=== PATIENT | male | born 1945 | race Caucasian/White ===

== ENCOUNTER 2016-08-29 22:14 | Inpatient (IN) ==
[2016-08-30] MEDS ORDERED: *HR* Heparin 5,000 UNIT/ML VIAL IVP PRN ×2 (01:36)
--- NOTE | 2016-08-30 01:41 | Internal Med History&Physical ---
Date of Encounter: 08/30/16 Time of Encounter: 01:38 Assessment and Plan (1) NSTEMI (non-ST elevated myocardial infarction) Current visit: Yes Status: Acute I will continue the patient on aspirin, beta en, heparin drip, nitro drip. Check echocardiogram. Patient will need a coronary angiography. He is allergic to contrast. Will pre-Medicaid the patient for contrast allergy. He has been having some abdominal discomfort and nausea. We will get a CT scan of the abdomen and pelvis. He is a lifelong smoker will give nicotine patch. I will discuss code status with him. Would like to be to not resuscitate except in the rear instance where he has an arrhythmia that physician Deems reversible. Internal Medicine - H&P: HPI Chief complaint: chest pain History of present illness: Mr. Adler is a 70 year old male with a history of hypertension, lifelong smoking who presented to [facility] emergency room on Tuesday 2 days ago because of chest pain. Patient has been experiencing retrosternal left pectoral chest pain radiating to his back and left shoulder. Pain lasted almost all day on Tuesday. Is also been feeling intermittent nausea but no vomiting. No hematomas is really no rain magic easy. Workup. [facility] shoulder troponin peak of about 7. Patient is thus transferred to our facility. pulls off pain during my interview. Patient had a prior stress test long time ago however no reason coronary evaluation. Patient also described abdominal discomfort but no focal pain or tenderness. Internal Medicine - H&P: Meds Allergies adhesive tape Allergy (Verified 08/30/16 00:49) Rash Iodinated Contrast- Oral and IV Dye Allergy (Verified 08/30/16 00:49) See Comments iodine Allergy (Verified 08/30/16 00:49) See Comments latex Allergy (Verified 08/30/16 00:49) See Comments Neomycin Allergy (Verified 08/30/16 00:49) Rash All Systems PM: A 10-system review of systems was performed and is negative for pertinent findings except as documented above in the HPI. Review of systems: 10 point ROS is negative except for HPI - Constitutional Vitals: Temp Resp BP Pulse Ox 98.2 F 16 128/83 95 08/30/16 00:34 08/30/16 00:34 08/30/16 00:34 08/30/16 00:34 Exam: Gen.: patient is alert oriented times 3 cardiac: normal S1 S2 no additional sounds or murmurs chest: no active wheezing or bronchial breathing abdomen soft nontender nondistended normal bowel sounds lower extremity no swelling. Neuro: no new focal deficits
[2016-08-30] MEDS ORDERED: Heparin 25,000 UNIT/500 ML D5W 25,000 UNIT/500 ML MLS IVC SCH (01:45)
[2016-08-30 02:00] LABS: Basophils % 0.4 %; Eosinophils # 0.2 K/mcL (0.0-0.6); Eosinophils % 2.4 %; Hematocrit 43.8 % (37.5-50.1); Hemoglobin 14.5 g/dL (12.9-16.9); Immature Granulocytes % 0.4 % (0-4); Lymphocytes # 3.1 K/mcL (0.6-4.6); Lymphocytes % 40.8 %; Mean Corpuscular HGB Conc 33.1 g/dL (31.6-35.5); Mean Corpuscular Hemoglobin 30.5 pg (28.0-33.3); Mean Corpuscular Volume 92.2 fL (83.0-100.0); Mean Platelet Volume 10.3 fL (9.4-12.4); Monocytes # 0.8 K/mcL (0.0-1.3); Monocytes % 10.6 %; Neutrophils # 3.5 K/mcL (1.6-8.9); Platelet Count 171 K/mcL (140-400); Red Blood Count 4.75 M/mcL (4.19-5.50); Red Cell Distribution Width 12.6 % (11.5-14.5); Segmented Neutrophils % 45.4 %
[2016-08-30 02:06] LABS: INR 1.1; Prothrombin Time 11.7 Seconds (9.4-12.1)
[2016-08-30 02:14] LABS: Alanine Aminotransferase 34 Units/L (0-55); Albumin 3.3 g/dL (3.5-5.0); Alkaline Phosphatase 53 Units/L (38-126); Aspartate Amino Transferase 28 Units/L (5-34); BUN/Creatinine Ratio 13 (6-26); Bilirubin,Total 0.6 mg/dL (0.2-1.2); Blood Urea Nitrogen 14 mg/dL (8-26); Calcium 8.9 mg/dL (8.6-10.8); Carbon Dioxide 29 mEq/L (19-29); Chloride 103 mEq/L (98-109); Creatine Kinase 192 Units/L (30-200); Globulin 3.2 g/dL (2.4-3.5); Glucose 130 mg/dL (70-99); Magnesium 2.1 mg/dL (1.6-2.6); Osmolality,Calculated 290 (280-300); Potassium 4.2 mEq/L (3.5-4.5); Sodium 139 mEq/L (136-145); Total Protein 6.5 g/dL (6.0-8.3); eGFR For African Americans > 60 (> 60); eGFR For Non-African Americans > 60 (> 60)
[2016-08-30] MEDS ORDERED: Nitroglycerin 25 MG/250 ML INFUS..BTL IVC SCH (02:30)
[2016-08-30] MEDS: Famotidine 20 MG/2 ML VIAL IVP SCH ×2 (06:15→16:41)
[2016-08-30] MEDS: Nicotine 21 MG PATCH.TD24 TD SCH (08:27)
--- NOTE | 2016-08-30 08:41 | Pre-Sedation Evaluation ---
Pre-sedation evaluation - Pre-sedation checklist Date of procedure: 08/30/16 Procedure: [facility] Recent Vitals: Last Vital Signs Temp 98 F 08/30/16 07:07 Pulse 69 08/30/16 07:07 Resp 18 08/30/16 07:07 BP 113/80 08/30/16 07:07 Pulse Ox 97 08/30/16 07:07 H&P (including ROS) documented in medical record: Yes Previous reaction to sedatives/anesthetics: No Dietary Status: NPO after Midnight Airway Assessment: Patient can open mouth completely, TMJ function normal ASA Classification *see protocol: CLASS II-Mild systemic disease Plan of Care: Pt appropriate candidate for procedure/moderate/conscious sedation , Risks/benefits of procedure/sedation discussed w/ patient/family
--- NOTE | 2016-08-30 08:56 | Cardiology Consult Note ---
Date of Encounter: 08/30/16 Time of Encounter: 08:51 Assessment and Plan (1) NSTEMI (non-ST elevated myocardial infarction) Current Visit: Yes Status: Acute Peak troponin 7.26 at [facility], now downtrending 4.34. On heparin and nitro gtt. Continue ASA, Statin, BB. Recommend [facility]. R/B/A discussed. Pt agrees to proceed. [facility] today. Was on daily Plavix started at [facility]. Discussed with Dr. Crouch, will load with 300mg once. Reports IVP dye allergy. Hives in the past. Will pre-medicate in earth science laboratory technician. Echo pending. (2) Tobacco abuse Current Visit: Yes Status: Acute Smoking cessation counseling given. Discussion w patient/family: The assessment and plan as outlined above was discussed with the patient and/or family members who expressed understanding and agreement. All questions were answered. Thank you for involving us in the care of your patient. Please call with any questions. I will discuss all the above with Dr. Crouch and make changes as necessary. History of Present Illness Consult date: 08/30/16 Requesting physician: Geraldo Anderosn Consult reason: NSTEMI Chief complaint: chest pain History of present illness: Mr. Adler is a 70 year old male with PMH of hyperlipidemia and tobacco abuse that presented in transfer from [facility] for NSTEMI. Pt reports on Tuesday he was outside chasing one of his horses. When he returned inside he developed midsternal chest pain radiating to left shoulder and into his back. He presented to [facility] and remained there until Tuesday night. Peak troponin was 7.26, now downtrended to 4.34. Pt reports the pain has been waxing and waning, improved with nitro, but has never completely resolved. He noticed new onset of fatigue when mowing grass last Tuesday. He denies dyspnea. He has been having intermittent lower abdominal pain and nausea and a CT is pending. Past Med Surg Social Fam HX - Past Medical History Medical history: arthritis, GERD, kidney stones, myocardial infarction Psychiatric history: no psych history - Social History Smoking Status: Current every day smoker Packs per day: 1 Smokeless Tobacco Status: No Alcohol use: none Drug use: none - Family History Brother Living Status: Age at : 50 Cause of : CVA Hx Family Cardiac Disorders: Yes (HTN) Father Living Status: Age at : 92 Cause of : "black lung" Hx Family Respiratory Disorders: Yes (Black lung) Medications and Allergies Lipitor 10 mg PO HS 08/30/16 [History] Pataday 1 drop BOTH EYES BID 08/30/16 [History] Allergies adhesive tape Allergy (Verified 08/30/16 00:49) Rash Iodinated Contrast- Oral and IV Dye Allergy (Verified 08/30/16 00:49) See Comments iodine Allergy (Verified 08/30/16 00:49) See Comments latex Allergy (Verified 08/30/16 00:49) See Comments Neomycin Allergy (Verified 08/30/16 00:49) Rash All Systems Review: A 10-system review of systems was performed and is negative for pertinent findings except as documented above in the HPI. - Cardiovascular Cardiovascular: as per HPI, chest pain at rest, chest pain with exertion, radiating jaw, neck or arm pain - Gastrointestinal Gastrointestinal: abdominal pain, nausea Physical Examination Vital Signs, Last 4 Hours Temp Pulse Resp BP Pulse Ox 08/30/16 07:07 98 F 69 18 113/80 97 Vital Signs Temp Pulse Resp BP Pulse Ox 08/30/16 07:07 98 F 69 18 113/80 97 08/30/16 04:27 69 19 103/52 95 08/30/16 00:34 98.2 F 16 128/83 95 Intake and Output 08/29/16 08/30/16 08/30/16 23:59 07:59 15:59 Intake Total 0 / 0 Balance 0 / 0 Intake: Oral 0 / 0 Other: # Voids 1 Weight 122 kg Patient Weight 08/30/16 23:59 Weight 122 kg General: Conversant, No Apparent Distress HEENT: Atraumatic, Normocephaly, Mucus Membranes Moist Neck: No JVD, Normal carotid pulses Cardiac: Reg Rate and Rhythm, Normal S1 and S2, No Murmur Lungs: Normal Breath Sounds, No Wheeze, Rales, Rhonchi Neuro: Alert and responsive, No focal deficits noted Abdomen: Soft, Non-Tender Skin: No rashes noted on visualized skin Musculoskeletal: No Chest Wall Tenderness Extremities: No Clubbing, No Cyanosis, No Edema, Normal Pulses Results 08/30/16 01:46 08/30/16 01:46 Lab Results 08/30/16 08/30/16 08/30/16 01:46 01:46 01:46 WBC 7.6 Hgb 14.5 Hct 43.8 Plt Count 171 INR 1.1 APTT 44.0 H Sodium 139 Potassium 4.2 Chloride 103 Carbon Dioxide 29 BUN 14 Creatinine 1.04 Glucose 130 H Calcium 8.9 Magnesium 2.1 Total Bilirubin 0.6 AST 28 ALT 34 Alkaline Phosphatase 53 Troponin I 08/30/16 01:46 WBC Hgb Hct Plt Count INR APTT Sodium Potassium Chloride Carbon Dioxide BUN Creatinine Glucose Calcium Magnesium Total Bilirubin AST ALT Alkaline Phosphatase Troponin I 4.34 H* Impressions Abdomen/Pelvis CT 08/30/16 07:40 IMPRESSION: 1. No acute intra-abdominal or intrapelvic process. 2. Bilateral nonobstructing nephrolithiasis, without evidence of a ureteral calculus or hydronephrosis. 3. Right renal cysts. 4. Diffuse hepatic steatosis. 5. Small bilateral fat containing inguinal hernias, with a small fat containing umbilical hernia. However, none of the hernias demonstrates incarceration or bowel involvement. 6. A 2.9 cm fusiform infrarenal AAA. Further follow-up of this abnormality is as suggested below. 7. Small pericardial effusion. RECOMMENDATIONS: Managing Abdominal Aortic Aneurysms 2.6-2.9 cm: 5 year follow up. Reference: Merritt et al. The care of patients with an abdominal aortic aneurysm: The Society of Vascular Surgery practice guidelines. Journal of Vascular Surgery. Vol 50, Number 85. Caesar et al. Managing Incidental Findings on Abdominal and Pelvic CT and MRI, Part 2: White Paper of the ACR Incidental Findings Committee II on Vascular Findings. J Am Therese Radiol 2013;10:789-794 D/ / 08/30/2016 08:28:38 Yared Dumont MD / miki Interpreting Provider: Yared Dumont MD Active Medications Aspirin (Aspirin) 325 mg PO DAILY [facility] Stop: 03/01/17 09:01 Famotidine (Pepcid) 20 mg IVP Q12HR TARA PRN Reason: Protocol Stop: 03/01/17 06:01 Last Admin: 08/30/16 06:15 Dose: 20 mg Heparin Sodium (Porcine) (Heparin) 4,000 unit IVP Q6HR PRN PRN Reason: SEE COMMENTS Stop: 03/01/17 01:37 Heparin Sodium (Porcine) (Heparin) 2,000 unit IVP Q6H PRN PRN Reason: SEE COMMENTS Stop: 03/01/17 01:37 Heparin Sodium/Dextrose (Heparin 25,000 Unit/500 Ml D5w) 25,000 unit in 500 mls @ 29.28 mls/hr IVC .Q17H5M TARA; 12 UNIT/KG/HR PRN Reason: Protocol Stop: 03/01/17 01:46 Last Admin: 08/30/16 02:12 Dose: 12 unit/kg/hr, 29.28 mls/hr Nitroglycerin (Nitroglycerin) 25 mg in 250 mls @ 3 mls/hr IVC .Q24H TARA; 5 MCG/ MIN PRN Reason: Protocol Stop: 03/01/17 02:31 Last Admin: 08/30/16 01:00 Dose: 5 mcg/min, 3 mls/hr Metoprolol Tartrate (Lopressor) 12.5 mg PO BID TARA Stop: 03/01/17 09:01 Nicotine (Nicoderm) 21 mg TD DAILY TARA PRN Reason: Protocol Stop: 03/01/17 09:01 Last Admin: 08/30/16 08:27 Dose: Not Given Simvastatin (Zocor) 20 mg PO HS TARA Stop: 03/01/17 21:01 - Imaging and Cardiology Echo: pending - EKG Interpretation EKG results cardiology: personally reviewed (SR with 1st degree block), other ( 12 hr tele AVG HR 69, SR, no significant pauses or arrhythmias.) Consult Discharge Plan - Plan Referrals: Last Padilla DO [Primary Care Provider] -
[2016-08-30] MEDS ORDERED: Aspirin 325 MG TABLET PO SCH (09:00)
[2016-08-30] MEDS ORDERED: 0.9 % Sodium Chloride 1,000 ML ONE (10:22)
[2016-08-30] MEDS ORDERED: Verapamil 5 MG/2 ML VIAL ONE (10:22)
[2016-08-30] MEDS ORDERED: Nitroglycerin 1,000 MCG/10 ML VIAL IV ONE (10:23)
[2016-08-30] MEDS ORDERED: *HR* Heparin 10,000 UNIT/10 ML VIAL ONE (10:23)
[2016-08-30] MEDS ORDERED: Heparin 1,000 UNITS/500 mL NS 500 ML ONE (10:23)
[2016-08-30] MEDS ORDERED: *HR* Midazolam HCl 2 MG/2 ML VIAL ONE (10:24)
[2016-08-30] MEDS ORDERED: *HR* FentaNYL (PF) 100 MCG/2 ML VIAL ONE (10:24)
[2016-08-30] MEDS ORDERED: 0.9 % Sodium Chloride 500 ML ONE (10:40)
[2016-08-30] MEDS ORDERED: methylPREDNISolone 125 MG/2 ML VIAL ONE (10:43)
--- NOTE | 2016-08-30 11:44 | Invasive Diagnostic Lab Proc ---
Name: Sidney Adler Date of Study: 08/30/2016 Date: 1945 Ht: 72.0in Medical Record#: [id number] Age: 70 Wt: 268.52lb Gender: Male BSA: 2.41 Order #: [id number] BMI: 36.41 Physicians Procedure Physician: Robbi Crouch MD, [facility] Referring MD: Referring MD: Staff Name Position Time In Lynn Garcia RT (R) Monitor 10:45 AM Pato Khan RT (R) Scrub 10:45 AM Bertha Saavedra RN Tank Wagon Operator 10:45 AM Indications Indication Non-Stemi Procedures Performed Procedure L HRT ARTERY/VENTRICLE ANGIO Pre-Procedure Checklist Informed consent is complete signed and on chart. H\\T\\P is on chart. ID band is on and ID verified with patient. Patient NPO for procedure The procedure was described for the patient and questions were answered. Blood Pressure: 161/83 ECG is on chart. Rhythm: NSR Plan of Care Patient will tolerate the procedure without complications. Adequate level of comfort will be maintained. Hemodynamics will remain stable Patient will recover from procedure without complications. Respiratory function will be maintained. Cardiac rhythm will remain stable. Patient temperature will be maintained. Patient and/or family have verbalized understanding of the procedure. Patient Education Chief Complaint/Reason for Test: Cardiac Cath Developmental Category: Adult (18-64 years) Developmentally Appropriate for Age: Yes Learning Barriers: None Education Needs: Procedure Education Method: Verbal Information Taught: Cardiac Cath Educational Evaluation: Able to repeat information Intravenous Access Time IV Size Location DC'd Fluid/Drip Rate Units RN 10:46 AM 20g 1 /" Patent On Arrival Lt Antecubital 0.9NaCl 25 ml/hr Allergies Iodinated Contrast- Oral and IV Dye iodine Neomycin adhesive tape latex Vital Signs Time BP (mmHg) HR (bpm) O2 Sat. RR (bpm) LOC 161 / 83 61 98 % 19 5 = Fully awake and oriented or at pre-proc level 10:47 AM / % 4 = Oriented but drowsy 10:47 AM / % 4 = Oriented but drowsy 11:02 AM / % 4 = Oriented but drowsy 10:51 AM 185 / 94 60 98 % 13 10:54 AM 161 / 83 64 99 % 17 10:57 AM 156 / 90 67 93 % 18 11:00 AM 157 / 84 64 93 % 16 11:03 AM 154 / 92 71 96 % 15 11:06 AM 145 / 79 65 95 % 17 11:09 AM 149 / 72 67 97 % 16 11:12 AM 149 / 71 64 97 % 18 11:15 AM 147 / 78 63 98 % 17 11:18 AM 142 / 79 63 98 % 13 11:22 AM 157 / 84 64 98 % 15 11:24 AM 157 / 85 60 98 % 11 11:27 AM 132 / 86 67 98 % 14 11:17 AM / % 4 = Oriented but drowsy Procedural Medications Time Medication Dose Units Method Given By 10:47 AM Oxygen 2 L/min nasal cannula Bertha Saavedra RN 10:49 AM Benadryl 50 mg Intravenous Bertha Saavedra RN 10:49 AM Solu-medrol 125 mg Intravenous Bertha Saavedra RN 10:49 AM Versed 2 mg Intravenous Bertha Saavedra RN 10:49 AM Fentanyl 50 mcg Intravenous Bertha Saavedra RN 11:01 AM Lidocaine 2% 0.5 ml Subcutaneous Robbi Crouch MD, FACC 11:03 AM Nitroglycerin 200 mcg Verapamil 2.5 mg Intraarterial Robbi Crouch MD, FACC 11:19 AM Heparin 4000 units Intravenous Bertha Saavedra RN 11:24 AM Nitroglycerin 200 mcg Intracoronary Robbi Crouch MD ASA Classification: CLASS II- Mild systemic disease (i.e. well-controlled diabetes, hypertension, asthma, cigarette smoking) Dary Score Preprocedure Postprocedure Activity 2- Moves 4 extremities sustained head lift Activity 2- Moves 4 extremities sustained head lift Circulation 2- SBP +/= 20 points of pre-anesthetic level Circulation 2- SBP +/= 20 points of pre-anesthetic level Consciousness 2- Awake and alert oriented x 3 Consciousness 2- Awake and alert oriented x 3 O2 Saturation 2- Able to maintain O2 satruation of 92% on room air O2 Saturation 2- Able to maintain O2 satruation of 92% on room air Respiratory 2- Able to deep breathe and cough well Respiratory 2- Able to deep breathe and cough well Total Score 10 Total Score 10 Contrast Agent: Isovue Diagnostic Contrast: 110 ml Total Contrast: 110 ml Fluoro Dose: 581 mGy Activated Clotting Time Time Seconds to Clot 11:19 AM 115 Procedure Log Time Note Enter By 10:44 AM CathStat 10:45 AM Pt arrived to [employer] [employer] 2 at 10:45 [email or web address] 10:45 AM Lynn Garcia RT (R) Position: Monitor Time in: 10:45 [email or web address] 10:45 AM Pato Khan RT (R) Position: Scrub Time in: 10:45 [email or web address] 10:45 AM Bertha Saavedra RN Position: Tank Wagon Operator Time in: 10:45 [email or web address] 10:46 AM Patient charges- Angio tray pack, Navilyst 3mm J, Pulse Oximetry and ACIST tubing and transducer [email or web address] 10:46 AM Case Delayed No [email or web address] 10:47 AM Physician arrived 10:47 [email or web address] 10:47 AM ASA Class CLASS II- Mild systemic disease (i.e. well-controlled diabetes, hypertension, asthma, cigarette smoking) [email or web address] 10:47 AM Meet and greet completed [email or web address] 10:47 AM Sign in performed according to hospital policy. [email or web address] 10:47 AM Procedure start 10:47 [email or web address] 10:47 AM Time: 10:47 Oxygen on at 2 L/min per nasal cannula by Bertha Saavedra RN [email or web address] 10:47 AM Time: 10:47 Patient comfortable and pain free: Yes [email or web address] 10:47 AM Time: 10:47LOC: 4 = Oriented but drowsy [email or web address] 10:48 AM Recorded ECG: HR=63 Condition=Condition 1 10:49 AM Time: 10:49 Benadryl 50 mg Intravenous Given by Bertha Saavedra RN [email or web address] 10:49 AM Time: 10:49 Solu-medrol 125 mg Intravenous Given by Bertha Saavedra RN [email or web address] 10:49 AM Time: 10:49 Versed 2 mg Intravenous Given by Bertha Saavedra RN [email or web address] 10:50 AM Time: 10:49 Fentanyl 50 mcg Intravenous Given by Bertha Saavedra RN [email or web address] 10:50 AM Vitals capture started with the following parameters, Patient=Adult, Interval=3 min, Initial Ncoixgvn=704 mmHg, Deflation Rate=5 mmHg, Cuff placed on Right Arm 10:51 AM HR=60 bpm, SYKZ=298/94 mmhg, SpO2=98.0 %, Resp=13 B/min, Comment=NSR 10:54 AM HR=64 bpm, UMDC=438/83 mmhg, SpO2=99.0 %, Resp=17 B/min, Comment=NSR 10:55 AM Pressure channel 1 zeroed. 10:57 AM HR=67 bpm, KIBE=656/90 mmhg, SpO2=93.0 %, Resp=18 B/min, Comment=NSR 10:57 AM Pressure channel 1 zeroed. 11:00 AM HR=64 bpm, FCEE=834/84 mmhg, SpO2=93.0 %, Resp=16 B/min, Comment=NSR 11:01 AM Time out performed according to hospital policy [email or web address] 11:01 AM Time: 11:01 0.5 ml Lidocaine 2% to right radial Subcutaneous Given by [facility], [facility] 11:02 AM Access obtained by percutaneous puncture. 6Fr 10cm Terumo Glidesheath sheath placed in right Radial artery. [id number] [email or web address] 11:02 AM Time: 10:47 Patient comfortable and pain free: Yes [email or web address] 11:02 AM Time: 10:47LOC: 4 = Oriented but drowsy [email or web address] 11:03 AM Time: 11:03 Patient given , 200 mcg Nitroglycerin, and 2.5 mg Verapamil Intraarterial by Robbi Crouch MD, [email or web address] 11:03 AM HR=71 bpm, FOUC=786/92 mmhg, SpO2=96.0 %, Resp=15 B/min, Comment=NSR 11:03 AM 5Fr TIG [email or web address] 11:03 AM 0.035 260cm Navilyst 3mmJ wire [id number] [email or web address] 11:05 AM RCA angiography performed in multiple views. [email or web address] 11:05 AM Recorded Pressure: Ao, HR=70, Condition=Condition 1 (Aorta) Ao 119/77/96 11:05 AM LCA angiography performed in multiple views. [email or web address] 11:06 AM Coronary Dominance: Left [email or web address] 11:06 AM Recorded Pressure: Ao, HR=66, Condition=Condition 1 (Aorta) Ao 107/66/86 11:06 AM HR=65 bpm, FHRF=954/79 mmhg, SpO2=95.0 %, Resp=17 B/min, Comment=NSR 11:08 AM Catheter removed [email or web address] 11:08 AM 5Fr Pigtail catheter inserted over the wire [facility] [email or web address] 11:08 AM Catheter selectively placed in left ventricle [email or web address] 11:09 AM Bolus angiogram of left Ventricle complete: 10 ml/sec for a total of 30 mls [email or web address] 11:09 AM HR=67 bpm, UHII=404/72 mmhg, SpO2=97.0 %, Resp=16 B/min, Comment=NSR 11:09 AM Pressure channel 1 zero failed. 11:09 AM Pressure channel 1 zero failed. 11:10 AM Pressure channel 1 zero failed. 11:10 AM Pressure channel 1 zeroed. 11:10 AM Recorded Pressure: LV, HR=69, Condition=Condition 1 (Left Ventricle) LV 148/7/20 11:11 AM Recorded Pressure: LV, HR=71, Condition=Condition 1 (Left Ventricle) LV 142/33/24 11:11 AM Catheter removed [email or web address] 11:12 AM HR=64 bpm, HXER=526/71 mmhg, SpO2=97.0 %, Resp=18 B/min, Comment=NSR 11:12 AM Lesion found in Mid LAD. Pre Stenosis: 50 Pre SHARON Flow: 3: Complete and Brisk Flow/Perfusion [email or web address] 11:13 AM Lesion found in 1st Diagonal. Pre Stenosis: 60 Pre SHARON Flow: 3: Complete and Brisk Flow/Perfusion [email or web address] 11:13 AM Lesion found in 2nd Diagonal. Pre Stenosis: 70 Pre SHARON Flow: [email or web address] 11:15 AM HR=63 bpm, MPFS=344/78 mmhg, SpO2=98.0 %, Resp=17 B/min, Comment=NSR 11:15 AM 6Fr RBL 3.5 Convey guide catheter was used to cannulate the PCI vessel successfully. reused? No [email or web address] 11:15 AM Inflation device was opened. [email or web address] 11:16 AM Pressure channel 1 zeroed. 11:16 AM Lesion found in 1st Marginal. Pre Stenosis: 90 Pre SHARON Flow: 2: Partial Flow/Perfusion (> 1 but < 3) [email or web address] 11:17 AM .014 [place] 190cm guide wire across target lesion- successful. reused? No [email or web address] 11:17 AM Time: 11:02LOC: 4 = Oriented but drowsy [email or web address] 11[facility] AM Time: 11:02 Patient comfortable and pain free: Yes [email or web address] 11:18 AM HR=63 bpm, ORGV=855/79 mmhg, SpO2=98.0 %, Resp=13 B/min, Comment=NSR 11:19 AM At 11:19 the ACT was 115 seconds. [email or web address] 11:20 AM Time: 11:20 Heparin 4000 units Intravenous Given by Bertha Saavedra RN [email or web address] 11:20 AM Recorded Pressure: Ao, HR=64, Condition=Condition 1 (Aorta) Ao 126/61/87 11:22 AM HR=64 bpm, YKIQ=392/84 mmhg, SpO2=98.0 %, Resp=15 B/min, Comment=NSR 11:24 AM HR=60 bpm, HROR=039/85 mmhg, SpO2=98.0 %, Resp=11 B/min, Comment=NSR 11:24 AM Time: 11:24 Nitroglycerin 200 mcg Intracoronary Given by Robbi Crouch MD [email or web address] 11:26 AM Guide wire removed intact. [email or web address] 11:26 AM Guide catheter removed intact. [email or web address] 11:27 AM HR=67 bpm, RHVS=682/86 mmhg, SpO2=98.0 %, Resp=14 B/min, Comment=NSR 11:28 AM Procedure completed at 11:28 [email or web address] 11:29 AM Sign out completed: Radiation Dose 580.68 mGy Fluoro Time: 5.9 Isovue 370 - 200ml contrast 110 ml given by Robbi Crouch MD, FACC. Complications: NoneCardiac Rehab Consult needed: NoConfirmed administered medications: Yes [email or web address] 11:29 AM Isovue 370 - 200ml,1 Bottle(s) used. [email or web address] 11:29 AM Arterial sheath pulled, Vasc Band closure device used and was Successful S/N. [email or web address] 11:29 AM 11 ml air in TR Band. [email or web address] 11:29 AM Post ECG NSR [email or web address] 11:29 AM Post Blood Pressure 132/86 [email or web address] 11:29 AM Information taught Cardiac Cath and Vasc Band [email or web address] 11:29 AM Education needs Procedure, Plan of Care, and Disease Process [email or web address] 11:29 AM Learning barriers :None [email or web address] 11:30 AM Education Methods Verbal [email or web address] 11:30 AM Education evaluation Able to repeat information [email or web address] 11:30 AM Site status No bleeding/hematoma - Rt Wrist as reported by Pato Khan RT (R) at 11:30 [email or web address] 11:30 AM Delay to floor No [email or web address] 11:30 AM Family placed in consult room. [email or web address] 11:30 AM Complications: None [email or web address] 11:30 AM Fluoro Time: 5.9 [email or web address] 11:31 AM Vitals capture stopped. 11:31 AM Report given to Nando MALIK Pt taken to E Room #29. 11:31 [email or web address] 11:32 AM Time: 11:17 Patient comfortable and pain free: Yes [email or web address] 11:33 AM Time: 11:17LOC: 4 = Oriented but drowsy [email or web address] 11:37 AM Patient out of room: 11:37 [email or web address] Complications Complication None None Hemodynamics Pressures Site Systolic/A Wave Diastolic/V Wave Mean AO 119 77 96 AO 107 66 86 LV 148 7 20 LV 142 33 24 AO 126 61 87 Post Procedure Information Blood Pressure: 132/86 mmHg Rhythm: NSR Post procedural instructions were given Closure Device Time Device Success/Fail 08/30/2016 11:31:00 AM Mechanical Compression Successful Site Checks Time Location Status Staff Sheath In? Note 11:30 AM Rt Wrist No bleeding/hematoma Pato Khan RT (R) Pulses Time Site Pre-Procedure Post-Procedure Note 08/30/2016 10:45:00 AM Bilateral radial 2+ 2+ 08/30/2016 10:45:00 AM Bilateral DP \\T\\ PT 1+ Updated by Lynn Garcia RT(R) on 08/30/2016 11:38:03 AM electronically signed on 08/30/2016 11:38:34 AM with status of Final
[2016-08-30] MEDS ORDERED: Nitroglycerin 0.4 MG TAB.SUBL SL PRN (11:50)
[2016-08-30] MEDS ORDERED: Ondansetron 4 MG/2 ML VIAL IVP PRN (11:50)
[2016-08-30] MEDS ORDERED: *HR* HYDROcodone/Acet 5/325 mg TABLET PO PRN (11:50)
[2016-08-30] MEDS ORDERED: Acetaminophen 325 MG TABLET PO PRN (11:50)
--- NOTE | 2016-08-30 12:31 | Electrocardiograph Report ---
[place] [address] Test Date: 2016-08-30 Pat Name: Sidney Adler Department: 111 Room: 2NE29 Gender: M Logistics Planner: [id number] : 1945 Requested By: Corbin Millan Order Number: [id number] Reading MD: Robbi Crouch MD Measurements Intervals [place] Rate: 62 P: 61 [place]: 243 QRS: 11 QRSD: 108 T: 52 QT: 415 QTc: 420 Interpretive Statements SINUS RHYTHM WITH FIRST DEGREE AV BLOCK Electronically Signed On 08-30-2016 12:29:31 EDT by Robbi Crouch MD
--- NOTE | 2016-08-30 12:48 | Invasive Diagnostic Lab ---
Name: Sidney Adler Date of Study: 08/30/2016 Date: 1945 Ht: 182.9 cm /72.0 in Medical Record#: [id number] Age: 70 Wt: 121.8 kg / 268.52 lb Account/Order#: [id number] Gender: Male BSA: 2.41 Order #: [id number] Fluoro Dose: 581 mGy BMI: 36.41 Procedure Physician: Robbi Crouch MD, FACC Referring MD: Referring MD: Procedures Performed: LEFT HEART CATH Indications: Non-Stemi Impressions: There is severe two vessel coronary artery disease. The left ventricle is normal and has normal contractility EF 60% Small vessel coronary disease Recommendations: Plavix (Clopidogrel) 75 mg PO Daily. Optimal medical therapy of patient's disease. History/Risk Factors: [place] pericardial effusion Hypertension Current/Recent Smoker Procedure Access obtained in the right Radial artery by percutaneous puncture Complications: None, None Contrast: Isovue 110ml Closure Device: Mechanical Compression Hemodynamics: Pressures Site Systolic/ A Wave Diastolic/ V Wave End Diastolic/ Mean HR AO 119 77 96 70 AO 107 66 86 66 LV 148 7 20 69 LV 142 33 24 71 AO 126 61 87 64 LV Ventriculography Ejection Method: LV Gram Ejection Fraction: 60% Wall Motion: CHAVEZ Anterobasal Normal Anterolateral Normal Apical: Normal Inferoapical Normal Inferobasal Normal Coronary Dominance: Left Lesion Findings/Interventions * Left Main Coronary Artery The LMCA is angiographically free of disease. * Left Anterior Descending There is a 50% stenosis in the Mid LAD. The lesion has a SHARON flow of 3. There is a 60% stenosis in the 1st Diagonal. The lesion has a SHARON flow of 3. There is a 70% stenosis in the 2nd Diagonal which is a small vessel. * Circumflex There is an ostial 70-80% stenosis in the 1st Marginal which has an acute angulation not amenable to intervention. The lesion has a SHARON flow of 3. Distal LCx and proximal PDA with mild disease * Right Coronary Artery The RCA is angiographically free of disease and is small and non dominant. Updated by RT Kareem(R) on 08/30/2016 11:37:24 AM Robbi Crouch MD, FACC electronically signed on 08/30/2016 12:42:18 PM with status of Final
[2016-08-30] MEDS ORDERED: *HR* LORazepam 2 MG/ML VIAL IVP ONE (13:22)
--- NOTE | 2016-08-30 14:34 | Event Note ---
Date of Encounter: 08/30/16 Time of Encounter: 09:30 Troponins trending down. No longer having chest pain. On nitroglycerin and heparin intravenous drips. Awaiting cardiac catheterization planned for later today. Continue monitoring vital signs. High-risk for complications due to non -ST elevation [place]. On aspirin, statin and beta en.
[2016-08-30] MEDS ORDERED: Melatonin 3 MG TABLET PO PRN (21:06)
[2016-08-31 05:42] VITALS: BP 142/75
[2016-08-31] MEDS: Famotidine 20 MG/2 ML VIAL IVP SCH (06:15)
[2016-08-31] MEDS ORDERED: Isosorbide MONOnitrate (24 HR) 60 MG TAB.ER.24H PO SCH (09:00)
[2016-08-31] MEDS ORDERED: Aspirin Enteric Coated 81 MG Tablet PO SCH (09:00)
[2016-08-31] MEDS: Nicotine 21 MG PATCH.TD24 TD SCH (09:33)
--- NOTE | 2016-08-31 09:39 | Cardiology Progress Note ---
Date of Encounter: 08/31/16 Time of Encounter: 09:36 Assessment and Plan (1) NSTEMI (non-ST elevated myocardial infarction) Current Visit: Yes Status: Acute Peak troponin 7.26 at [facility], now downtrended 3.68. [facility] yesterday severe 2 vessel disease--70% 2nd diag small vessel and ostial 70- 80% 1st marginal which has acute angulation not amendable to revascularization. Right radial access site healing well. No bleeding, hematoma or ecchymosis noted. Echo EF 60-65%, normal LV chamber size and function, mild concentric LVH, mild LVDD, no significant valve dysfunction. Recommend DAPT (ASA and Plavix) uninterrupted x 1 year, statin, BB, nitrates. Follow-up in 1 week as outpt. Will coordinate. Discussed risk factor modification--healthy diet, exercise, smoking cessation. Recommend ambulating in [place]. If no chest pain, okay for discharge per primary team. Pt reports one episode of chest pain overnight at rest when thinking about hospital bills and cost--likely anxiety related. Denies exertional chest pain. (2) Tobacco abuse Current Visit: Yes Status: Acute Smoking cessation counseling given. Discussion w patient/family: The assessment and plan as outlined above was discussed with the patient and/or family members who expressed understanding and agreement. All questions were answered. Thank you for involving us in the care of your patient. Please call with any questions. I will discuss all the above with Dr. Crouch and make changes as necessary. Subjective Principal diagnosis: NSTEMI Interval history: [facility] yesterday with severe 2 vessel disease, small vessel, not amendable to PCI. Echo EF 60-65%, normal wall motion, no significant valvular dysfunction. Pt reports one episode of chest pain overnight at rest when he was thinking about hospital bills. No exertional chest pain. Denies dyspnea. Objective Vital Signs, Last 4 Hours Pulse Resp BP Pulse Ox 08/31/16 05:39 80 16 142/75 95 Vital Signs Temp Pulse Resp BP Pulse Ox 08/31/16 05:39 80 16 142/75 95 08/31/16 00:33 97.4 F L 86 16 176/102 92 08/30/16 19:31 97.7 F 87 16 161/85 94 08/30/16 15:15 97.4 F L 73 18 146/77 97 08/30/16 14:33 70 14 112/70 96 08/30/16 13:30 74 14 134/66 95 08/30/16 12:48 74 16 138/64 95 08/30/16 12:31 97.8 F 70 16 140/70 96 08/30/16 12:15 70 16 140/70 96 08/30/16 12:00 16 148/62 96 08/30/16 11:50 97.8 F 62 18 135/81 96 08/30/16 11:45 16 150/85 95 Intake and Output 08/30/16 08/31/16 08/31/16 23:59 07:59 15:59 Intake Total 0 / 0 240 / 240 240 / 240 Balance 0 / 0 240 / 240 240 / 240 Intake: Oral 0 / 0 240 / 240 240 / 240 Other: Meal Dinner Breakfast Percent of Meal Consumed 100% 100% # Voids 0 0 Weight 122.5 kg Patient Weight 08/31/16 23:59 Weight 122.5 kg General: Conversant, No Apparent Distress HEENT: Atraumatic, Normocephaly, Mucus Membranes Moist Neck: No JVD, Normal carotid pulses Cardiac: Reg Rate and Rhythm, Normal S1 and S2, No Murmur Lungs: Normal Breath Sounds, No Wheeze, Rales, Rhonchi Neuro: Alert and responsive, No focal deficits noted Abdomen: Soft, Non-Tender Skin: Other (right radial access site healing well. No bleeding, hematoma or ecchymosis noted.) Musculoskeletal: No Chest Wall Tenderness Extremities: No Clubbing, No Cyanosis, No Edema, Normal Pulses Results 08/30/16 01:46 08/30/16 01:46 Impressions Abdomen/Pelvis CT 08/30/16 07:40 IMPRESSION: 1. No acute intra-abdominal or intrapelvic process. 2. Bilateral nonobstructing nephrolithiasis, without evidence of a ureteral calculus or hydronephrosis. 3. Right renal cysts. 4. Diffuse hepatic steatosis. 5. Small bilateral fat containing inguinal hernias, with a small fat containing umbilical hernia. However, none of the hernias demonstrates incarceration or bowel involvement. 6. 2.9 cm fusiform infrarenal AAA. Further follow-up of this abnormality is as suggested below. 7. Small pericardial effusion. RECOMMENDATIONS: Managing Abdominal Aortic Aneurysms 2.6-2.9 cm: 5 year follow up. Reference: Merritt et al. The care of patients with an abdominal aortic aneurysm: The Society of Vascular Surgery practice guidelines. Journal of Vascular Surgery. Vol 50, Number 85. Caesar et al. Managing Incidental Findings on Abdominal and Pelvic CT and MRI, Part 2: White Paper of the ACR Incidental Findings Committee II on Vascular Findings. J Am Therese Radiol 2013;10:789-794 D/ / 08/30/2016 08:28:38 Yared Dumont MD / lourdesrter Interpreting Provider: Yared Dumont MD Active Medications Acetaminophen (Tylenol) 650 mg PO Q6HR PRN PRN Reason: Mild Pain Stop: 03/01/17 11:51 Hydrocodone Bitart/Acetaminophen ([place] 5-325 Mg) 1 tab PO Q4HR PRN PRN Reason: Moderate Pain Stop: 03/01/17 11:51 Aspirin (Aspirin Ec) 81 mg PO DAILY [facility] Stop: 03/02/17 09:01 Last Admin: 08/31/16 09:31 Dose: 81 mg Atorvastatin Calcium (Lipitor) 40 mg PO HS TARA Stop: 03/02/17 21:01 Clopidogrel Bisulfate (Plavix) 75 mg PO DAILY TARA Stop: 03/02/17 09:01 Last Admin: 08/31/16 09:31 Dose: 75 mg Famotidine (Pepcid) 20 mg IVP Q12HR TARA PRN Reason: Protocol Stop: 03/01/17 06:01 Last Admin: 08/31/16 06:15 Dose: 20 mg Isosorbide Mononitrate (Imdur) 60 mg PO DAILY TARA Stop: 03/02/17 09:01 Last Admin: 08/31/16 09:31 Dose: 60 mg Melatonin (Melatonin) 3 mg PO HS PRN PRN Reason: Insomnia Stop: 03/01/17 21:07 Last Admin: 08/31/16 00:34 Dose: 3 mg Metoprolol Tartrate (Lopressor) 12.5 mg PO BID TARA Stop: 03/01/17 09:01 Last Admin: 08/31/16 09:31 Dose: 12.5 mg Nicotine (Nicoderm) 21 mg TD DAILY TARA PRN Reason: Protocol Stop: 03/01/17 09:01 Last Admin: 08/31/16 09:33 Dose: Not Given Nitroglycerin (Nitroglycerin) 0.4 mg SL Q5MIN PRN PRN Reason: Chest Pain Stop: 03/01/17 11:51 Ondansetron HCl (Zofran) 4 mg IVP Q6HR PRN; Protocol PRN Reason: Nausea And Vomiting Stop: 03/01/17 11:51 - Imaging and Cardiology Echo: report reviewed Cardiac cath: report reviewed - EKG Interpretation EKG results cardiology: other (24 hr tele AVG HR 79, no significant pauses or arrhythmias.) Consult Discharge Plan - Plan Additional Instructions: RISK FACTORS: STOP SMOKING: If you smoke, STOP. Smoking or tobacco use significantly increases your risk of heart disease because nicotine causes the arteries to narrow or constrict. It also causes fats to stick to the artery. Your chances of having a heart attack are greatly increased if you continue to smoke. For more information, call the education line for smoking cessation 1-032-WOWVAZK EAT A LOW FAT/CHOLESTEROL/SODIUM DIET: This diet may help reduce your chances of having a heart attack. LIFTING: With affected extremity: Avoid bending, pushing off and lifting more than 2 pounds for 24 hours The following 48 hours, avoid lifting anything more than 5 pounds Avoid strenuous activity or repetitive motions ACTIVITY: You may walk or climb stairs as tolerated You can resume sexual activity as tolerated In general, you are encouraged to engage in a minimum of 30 minutes or more of moderate intensity physical activity, such as brisk walking, daily or at least 3 -4 times weekly BATHING Do not submerge the site into water (bath tub, hot tub, swimming pool, dishes) for 1 week. This can be a source for infection into the blood stream. You may shower after 24 hours SITE CARE: After 24 hours, you may remove the dressing and leave the site open to air. Keep the site clean and dry. Clean gently and pat dry. You can expect bruising and tenderness that gradually resolve within a week or two. Return to work as instructed per your physician Resume driving as instructed per physician Keep all scheduled follow up appointments Resume medications as instructed IMPORTANT: If prescribed a Platelet Aggregation Inhibitor such as, Plavix, Brilinta or Effient: Duration of therapy is minimum one year These medications are often used in combination with Aspirin in prevention of future heart attacks Never discontinue unless consult with your Sales [employer] STROKE (CVA) Risk factors for a stroke are: Age, cigarette smoking, diabetes, excessive alcohol consumption, family history, high blood pressure, overweight, physical inactivity, prior stroke, heart attack, diagnosis of carotid artery stenosis or other artery disease. Warning signs: Sudden numbness or weakness of the face, arm or leg; especially on one side of the body, sudden confusion, trouble speaking or understanding, sudden trouble seeing in one or both eyes, sudden trouble walking, dizziness, loss of balance or coordination, sudden severe headache with no cause. Call 911 or go to the Emergency Room. CONGESTIVE HEART FAILURE: If you have been diagnosed with Congestive Heart Failure (CHF) and your symptoms return, make an appointment with your physician Weigh yourself daily. Notify your physician if you have a weight gain of two or more pounds in one day or five or more pounds in one week. If you experience any difficulty breathing, please call 911 BLEEDING: Although the risk of bleeding is minimal, it can happen. If you have any bleeding from the site, apply firm pressure above the puncture site for 10-15 minutes. If the bleeding does not stop, continue manual pressure and call 911 Contact [facility] ( ) if: You develop a fever greater than 101 degrees Fahrenheit Your site becomes reddened or has any drainage You have an increase in pain or burning at the site or if a large knot forms at the site. If you experience chest pain, shortness of breath, dizziness, or extreme tiredness, stop the activity and rest. Please notify [facility] office if you experience any of these symptoms and they are not relieved by rest please call 911! Referrals: Last Padilla, [Primary Care Provider] -
[2016-08-31] MEDS ORDERED: Nitroglycerin Spray 4.9 GM BOTTLE TL PRN (09:46)
[2016-08-31 10:20] LABS: Basophils % 0.1 %; Eosinophils % 0.1 %; Hematocrit 45.3 % (37.5-50.1); Hemoglobin 15.2 g/dL (12.9-16.9); Immature Granulocytes % 0.7 % (0-4); Lymphocytes # 1.9 K/mcL (0.6-4.6); Lymphocytes % 12.4 %; Mean Corpuscular HGB Conc 33.6 g/dL (31.6-35.5); Mean Corpuscular Volume 89.3 fL (83.0-100.0); Mean Platelet Volume 10.6 fL (9.4-12.4); Monocytes # 0.8 K/mcL (0.0-1.3); Monocytes % 5.4 %; Neutrophils # 12.3 K/mcL (1.6-8.9); Platelet Count 207 K/mcL (140-400); Red Blood Count 5.07 M/mcL (4.19-5.50); Red Cell Distribution Width 12.3 % (11.5-14.5); Segmented Neutrophils % 81.3 %
[2016-08-31 10:33] LABS: BUN/Creatinine Ratio 16 (6-26); Blood Urea Nitrogen 16 mg/dL (8-26); Calcium 9.3 mg/dL (8.6-10.8); Carbon Dioxide 26 mEq/L (19-29); Chloride 101 mEq/L (98-109); Glucose 214 mg/dL (70-99); Osmolality,Calculated 286 (280-300); Sodium 134 mEq/L (136-145); eGFR For African Americans > 60 (> 60); eGFR For Non-African Americans > 60 (> 60)
--- NOTE | 2016-08-31 10:37 | Discharge Summary ---
Date of Encounter: 08/31/16 Time of Encounter: 10:00 - Discharge Diagnosis (1) NSTEMI (non-ST elevated myocardial infarction) Priority: Primary Status: Acute (2) Tobacco abuse Priority: Secondary Status: Chronic (3) Obesity (BMI 30-39.9) Priority: Secondary Status: Chronic - Discharge Medications Prescriptions: Nitroglycerin 1 spray TL Q5MIN PRN #1 bottle PRN Reason: Chest Pain Aspirin Enteric Coated [Aspirin EC] 81 mg PO DAILY #90 tablet. Atorvastatin Calcium [Lipitor] 80 mg PO HS #90 tab Clopidogrel [Plavix] 75 mg PO DAILY #90 tablet Isosorbide MONOnitrate (24 HR) [Imdur] 60 mg PO DAILY #90 tab.er.24h Metoprolol [Lopressor] 12.5 mg PO BID #90 tablet Home Medications: Olopatadine HCl [Pataday] 1 drop OP BID 08/30/16 [History] Aspirin Enteric Coated [Aspirin EC] 81 mg PO DAILY #90 tablet. 08/31/16 [Rx] Atorvastatin Calcium [Lipitor] 80 mg PO HS #90 tab 08/31/16 [Rx] Clindamycin [Cleocin] 150 mg PO QID 08/31/16 [History] Clopidogrel [Plavix] 75 mg PO DAILY #90 tablet 08/31/16 [Rx] Isosorbide MONOnitrate (24 HR) [Imdur] 60 mg PO DAILY #90 tab.er.24h 08/31/16 [ Rx] Lansoprazole [Prevacid] 30 mg PO DAILY 08/31/16 [History] Metoprolol [Lopressor] 12.5 mg PO BID #90 tablet 08/31/16 [Rx] Nitroglycerin 1 spray TL Q5MIN PRN #1 bottle 08/31/16 [Rx] Ofloxacin *EAR* Drops [Floxin] 5 drop BOTH EARS BID 08/31/16 [History] Oxycodone HCl [Oxaydo] 5 mg PO TID PRN 08/31/16 [History] Oxymorphone HCl [Oxymorphone HCl ER] 40 mg PO BID PRN 08/31/16 [History] diazePAM [Valium] 10 mg PO QID PRN 08/31/16 [History] Allergies/Adverse Reactions: Allergies adhesive tape Allergy (Verified 08/30/16 00:49) Rash Iodinated Contrast- Oral and IV Dye Allergy (Verified 08/30/16 00:49) See Comments iodine Allergy (Verified 08/30/16 00:49) See Comments latex Allergy (Verified 08/30/16 00:49) See Comments Neomycin Allergy (Verified 08/30/16 00:49) Rash Procedures/tests Complete & Pending: Procedures Performed prior 72 hours Category Date Time Status CT abd pelvis wo no iv no oral [CT] Routine Cat Scan 08/30/16 07:40 Completed CL Cardiac Catheterization [CL] Routine Type Disk Quality Control Supervisor 08/30/16 09:12 Completed ECG 12 lead ECG [ECG] Stat Y 08/30/16 01:33 Completed EV echocardiogram Routine Y 08/30/16 01:37 Completed Date of admission: 08/30/16 00:06 Primary care physician: Last Padilla DO Consults: 08/30/16 01:33 Consult to Cardiology [CONS] Routine Comment: Consulting Provider: Cardiology Dara Reason for Consult: NSTEMI Call Completed: No 08/30/16 10:08 Consult to Cardiac Rehabilitation-Phase1 [CONS] Routine Comment: Reason for Consult: NSTEMI Call Completed: No Discharging clinician: Jonathan Rodrigez Anticipated date of discharge: 08/31/16 - Patient Status Disposition: Home, Self-Care Condition: Fair Functional capacity at discharge: independent ambulation Overall status at discharge: patient is back to baseline - Discharge Instructions Follow Up With: Last Padilla DO [Primary Care Provider] - 09/10/16 3:30 pm Robbi Crouch MD [Partnered Physician] - Additional Instructions: RISK FACTORS: STOP SMOKING: If you smoke, STOP. Smoking or tobacco use significantly increases your risk of heart disease because nicotine causes the arteries to narrow or constrict. It also causes fats to stick to the artery. Your chances of having a heart attack are greatly increased if you continue to smoke. For more information, call the education line for smoking cessation 4-084-AZIVSRT EAT A LOW FAT/CHOLESTEROL/SODIUM DIET: This diet may help reduce your chances of having a heart attack. LIFTING: With affected extremity: Avoid bending, pushing off and lifting more than 2 pounds for 24 hours The following 48 hours, avoid lifting anything more than 5 pounds Avoid strenuous activity or repetitive motions ACTIVITY: You may walk or climb stairs as tolerated You can resume sexual activity as tolerated In general, you are encouraged to engage in a minimum of 30 minutes or more of moderate intensity physical activity, such as brisk walking, daily or at least 3 -4 times weekly BATHING Do not submerge the site into water (bath tub, hot tub, swimming pool, dishes) for 1 week. This can be a source for infection into the blood stream. You may shower after 24 hours SITE CARE: After 24 hours, you may remove the dressing and leave the site open to air. Keep the site clean and dry. Clean gently and pat dry. You can expect bruising and tenderness that gradually resolve within a week or two. Return to work as instructed per your physician Resume driving as instructed per physician Keep all scheduled follow up appointments Resume medications as instructed IMPORTANT: If prescribed a Platelet Aggregation Inhibitor such as, Plavix, Brilinta or Effient: Duration of therapy is minimum one year These medications are often used in combination with Aspirin in prevention of future heart attacks Never discontinue unless consult with your [employer] STROKE (CVA) Risk factors for a stroke are: Age, cigarette smoking, diabetes, excessive alcohol consumption, family history, high blood pressure, overweight, physical inactivity, prior stroke, heart attack, diagnosis of carotid artery stenosis or other artery disease. Warning signs: Sudden numbness or weakness of the face, arm or leg; especially on one side of the body, sudden confusion, trouble speaking or understanding, sudden trouble seeing in one or both eyes, sudden trouble walking, dizziness, loss of balance or coordination, sudden severe headache with no cause. Call 911 or go to the Emergency Room. CONGESTIVE HEART FAILURE: If you have been diagnosed with Congestive Heart Failure (CHF) and your symptoms return, make an appointment with your physician Weigh yourself daily. Notify your physician if you have a weight gain of two or more pounds in one day or five or more pounds in one week. If you experience any difficulty breathing, please call 911 BLEEDING: Although the risk of bleeding is minimal, it can happen. If you have any bleeding from the site, apply firm pressure above the puncture site for 10-15 minutes. If the bleeding does not stop, continue manual pressure and call 911 Contact [facility] ( ) if: You develop a fever greater than 101 degrees Fahrenheit Your site becomes reddened or has any drainage You have an increase in pain or burning at the site or if a large knot forms at the site. If you experience chest pain, shortness of breath, dizziness, or extreme tiredness, stop the activity and rest. Please notify [facility] office if you experience any of these symptoms and they are not relieved by rest please call 911! - Diet and Activity Activity: increase activity as tolerated Diet: low fat, low cholesterol, low salt diet Hospital course: Mr. Adler is a 70 year old male with a history of hypertension and tobacco abuse who presented to emergency department at [facility] on Tuesday due to chest pain. Patient was subsequently transferred to [facility] for higher level of care after he was found to have non-STEMI. He was evaluated by cardiology and was taken for catheterization on 08/30/2016. Patient was found to have severe two-vessel disease with 70-80% stenosis in the first marginal branch of left circumflex artery that was not amenable to intervention. A 70% stenosis in the second diagonal branch of the left anterior descending artery was also seen. These would felt not to be amenable to intervention. Hence, the patient did not have a stent placed. Optimal medical management has been recommended by cardiac allergy. The patient is currently on aspirin, statin, beta en and long-acting nitrate. Patient was admitted by cardiology on 12/2016. It was recommended by cardiogenic that the patient can be discharged if he is able to walk and does not have reproducible chest pain. The patient performed 3 laps around the unit and did not have any reproduction of his symptoms. Hence, he has been deemed stable to be discharged home with follow- up with cardiology as an outpatient. Patient was counseled regarding smoking cessation. He is agreeable to quit smoking. - Time Spent with Patient Total time spent providing and/or coordinating discharge services: Greater than 30 minutes (40 min) - Constitutional Vitals: Temp Pulse Resp BP Pulse Ox 97.4 F L 80 16 142/75 95 08/31/16 00:33 08/31/16 05:39 08/31/16 05:39 08/31/16 05:39 08/31/16 05:39 Exam: Gen.: Sitting in a chair. No acute distress. Chest: Clear to auscultation bilaterally. No adventitious sounds present. CVS: First and second heart sounds present. No murmurs, rubs or gallops. Abdomen: Soft, nontender, nondistended. Bowel sounds present. No hepatosplenomegaly.
[2016-09-01 19:15] LABS: CK-BB (CK isoenzymes) 0 % (0-0); CK-MB (CK isoenzymes) 0 % (0-4); CK-MM (CK-isoenzymes) 100 % (96-100)
[2016-09-03 08:09] LABS: CK Total (Ck Isoenzymes) 182 U/L (20-200)
== END 2016-08-31 14:31 | disposition home or self-care (01) | DRG 281 ==
LOC: 2NENU 08-30 00:06
PROVIDERS: ADMIT Internal Medicine Endocrinology, Diabetes & Metabolism; ATTEND Internal Medicine